=== PATIENT | male | born 1985 | race Caucasian/White ===

== ENCOUNTER 2016-12-24 15:04 | Emergency (ER) | payer SELFPAY ==
[~2016-12-24] VITALS: Ht 170.2 cm; Wt 63.5 kg
[2016-12-24 15:09] VITALS: BP 122/76
--- NOTE | 2016-12-24 15:34 | PHYS DOC ---
Past Medical History Past Medical History: Other Additional Past Medical Histor: SCOLIOSIS, dental disease Past Surgical History: No Surgical History Smoking: Less than 1pk/day Additional Information: 09/09 ppd Alcohol Use: Occasionally Drug Use: None Adult General Chief Complaint Chief Complaint: LOWER BACK PAIN OR INJURY [facility] HPI Patient is a 31 year old male who presents with low back and tailbone pain after falling down approximately 5 stairs 1 week ago. The pain does not radiate. He denies hitting his head or loss of consciousness. He does not have weakness, numbness, incontinence, or saddle anesthesia. He denies abdominal pain , nausea, vomiting, or urinary symptoms. He is ambulatory. He has been prescribed Tylenol #3 in the past for his scoliosis pain. He is out of this medication. His PCP is Dr. Viviana Elizalde. Review of Systems Review of Systems Constitutional: Denies fever or chills. [] Eyes: Denies change in visual acuity, redness, or eye pain. [] HENT: Denies ear pain, nasal congestion or sore throat. [] Respiratory: Denies cough or shortness of breath. [] Cardiovascular: Denies chest pain, palpitations or edema. [] GI: Denies abdominal pain, nausea, vomiting, bloody stools or diarrhea. [] : Denies dysuria, hematuria or urinary frequency. [] Musculoskeletal: Denies joint pain. Reports low back and tailbone pain. Integument: Denies rash or skin lesions. [] Neurologic: Denies headache, focal weakness or sensory changes. Denies incontinence or saddle anesthesia. Denies loss of consciousness. Endocrine: Denies polyuria or polydipsia. [] Psych: Denies anxiety or depression. [] All systems reviewed and negative unless otherwise stated in the HPI. Allergies Allergies Allergies Coded Allergies Type Severity Reaction Last Updated Verified Sulfa (Sulfonamide Antibiotics) Allergy Unknown 01/09/15 No Physical Exam Physical Exam Constitutional: Well developed, well nourished, no acute distress, non-toxic appearance. [] HENT: Normocephalic, atraumatic, oropharynx moist. [] Eyes: PERRLA, EOMI, conjunctiva normal, no discharge. [] Neck: Normal range of motion, no tenderness, supple, no stridor. [] Cardiovascular: Heart rate regular rhythm, no murmur. [] Lungs & Thorax: Bilateral breath sounds clear to auscultation without wheezes, rales, or rhonchi. [] Abdomen: Bowel sounds normal, soft, no tenderness, no masses, no pulsatile masses. [] Skin: Warm, dry, no erythema, no rash. [] Back: Lumbar and sacral midline tenderness, no CVA tenderness. There is bilateral paraspinal lumbar muscle tenderness. Extremities: No tenderness, ROM intact, no edema. Distal pulses equal bilaterally. Neurovascularly intact distally. Neurologic: Alert and oriented X 3, normal motor function, normal sensory function, no focal deficits noted. [] Psychologic: Affect normal, judgement normal, mood normal. [] Current Patient Data Vital Signs Vital Signs Date Time Temp Pulse Resp B/P Pulse Ox O2 Delivery O2 Flow Rate FiO2 12/24/16 15:09 97.5 90 18 98 Room Air 97.5 EKG EKG [] Radiology/Procedures Radiology/Procedures REASON: fall down 5 stairs PROCEDURE: LUMBAR SPINE 2-3V; SACRUM & COCCYX 3V Lumbar spine, 3 views, 12/24/2016: History: Fall There is a minimal lumbar scoliosis. No fracture or dislocation is identified. The disc spaces are well preserved. The paraspinous soft tissues are unremarkable. IMPRESSION: No acute bony abnormality is detected. Sacrococcygeal spine, 12/24/2016: No fracture is identified. The presacral soft tissues are unremarkable. IMPRESSION: No acute abnormality is detected. Course & Med Decision Making Course & Med Decision Making Pertinent Labs and Imaging studies reviewed. (See chart for details) [] Dragon Disclaimer Dragon Disclaimer This electronic medical record was generated, in whole or in part, using a voice recognition dictation system. Departure Departure Impression: Primary Impression: Coccygeal contusion Disposition: 01 HOME, SELF-CARE Condition: STABLE Referrals: NO PCP (PCP) Patient Instructions: Tailbone Injury, [id number] Additional Instructions: There were no broken bones or dislocation seen on your xrays today. Please take the prescribed medications as directed. Do not drive or operate heavy machinery while taking these medications. To help your back pain, you may apply heat, practice gentle stretching, and light massage. Avoid bending or heavy lifting, as these will strain your back. Please follow up with your primary care doctor if your pain continues. Return to the emergency department if you have any new or concerning symptoms. Scripts Methocarbamol (Robaxin)500 Mg [id number] Mg PO QID #20 TAB Prov:STANISLAV ARTHUR 12/24/16 Acetaminophen With Codeine (Tylenol With Codeine #3 Tablet)1 Each Tablet1 Tab PO PRN Q6HRS PRN PAIN #20 TAB Prov:STANISLAV ARTHUR 12/24/16 Problem Qualifiers Primary Impression: Coccygeal contusion Encounter type: initial encounter Qualified Code: S30.0XXA - Contusion of lower back and pelvis, initial encounter STANISLAV ARTHUR Dec 24, 2016 15:34
--- NOTE | 2016-12-24 16:19 | RAD ---
Lumbar spine, 3 views, 12/24/2016: History: Fall There is a minimal lumbar scoliosis. No fracture or dislocation is identified. The disc spaces are well preserved. The paraspinous soft tissues are unremarkable. IMPRESSION: No acute bony abnormality is detected. Sacrococcygeal spine, 12/24/2016: No fracture is identified. The presacral soft tissues are unremarkable. IMPRESSION: No acute abnormality is detected.
[2016-12-24] MEDS ORDERED: ACET-704 PO (16:33)
[2016-12-24] MEDS ORDERED: METH-37 PO (16:33)
== END 2016-12-24 16:39 | disposition home or self-care (01) ==
LOC: ER 15:04
DX: S30.0XXA Contusion of lower back and pelvis, initial encounter (principal); M41.9 Scoliosis, unspecified; F17.200 Nicotine dependence, unspecified, uncomplicated; Z88.2 Allergy status to sulfonamides; W10.8XXA Fall (on) (from) other stairs and steps, initial encounter; Y93.89 Activity, other specified; Y92.89 Other specified places as the place of occurrence of the external cause; Y99.8 Other external cause status
CPT/HCPCS: 72100; 72220; 99284

== ENCOUNTER 2018-06-17 12:08 | Emergency (ER) | payer SELFPAY ==
[~2018-06-17] VITALS: Ht 170.2 cm; Wt 63.5 kg
[~2018-06-17 12:08] MED LIST: ACET-704 PO; METH-37 PO
[2018-06-17 12:19] VITALS: BP 148/85
[2018-06-17] MEDS ORDERED: BENZ100C PO (12:36)
[2018-06-17] MEDS ORDERED: PROM118S5 PO (12:36)
[2018-06-17] MEDS ORDERED: DOXY100C2 PO (12:36)
--- NOTE | 2018-06-17 12:36 | PHYS DOC ---
Past Medical History Past Medical History: Other Additional Past Medical Histor: SCOLIOSIS, dental disease Past Surgical History: No Surgical History Alcohol Use: Occasionally Drug Use: None Adult General Chief Complaint Chief Complaint: COUGH HPI HPI Patient is a 33 year old male who presents with sinus pressure and congestion with productive cough for the last 30 days. Patient reports it is steadily worsened over the last 10 days. He reports he is a smoker, but has been unable to smoke the last few days due to shortness of breath. He denies fever or chills. Review of Systems Review of Systems Constitutional: Denies fever or chills [] HENT: Reports sinus pain and pressure, no sore throat Respiratory: Reports productive cough and shortness of breath Cardiovascular: No additional information not addressed in HPI [] Integument: Denies rash or skin lesions [] Neurologic: Denies headache, focal weakness or sensory changes [] All other systems were reviewed and found to be within normal limits, except as documented in this note. Allergies Allergies Allergies Coded Allergies Type Severity Reaction Last Updated Verified Sulfa (Sulfonamide Antibiotics) Allergy Unknown 01/09/15 No Physical Exam Physical Exam Constitutional: Well developed, well nourished, no acute distress, non-toxic appearance. [] HENT: Normocephalic, atraumatic, bilateral TMs normal, oropharynx moist, no oral exudates, a few sinus tenderness on palpation Eyes: PERRLA, EOMI, conjunctiva normal, no discharge. [] Neck: Normal range of motion, no tenderness, supple, no stridor. [] Cardiovascular:Heart rate regular rhythm, no murmur [] Lungs & Thorax: Bilateral breath sounds clear to auscultation [] Skin: Warm, dry, no erythema, no rash. [] Neurologic: Alert and oriented X 3, normal motor function, normal sensory function, no focal deficits noted. [] Psychologic: Affect normal, judgement normal, mood normal. [] Current Patient Data Vital Signs Vital Signs Date Time Temp Pulse Resp B/P (MAP) Pulse Ox O2 Delivery O2 Flow Rate FiO2 06/17/18 12:19 98.4 106 20 148/85 (106) 98 Room Air 98.4 EKG EKG [] Radiology/Procedures Radiology/Procedures [] Course & Med Decision Making Course & Med Decision Making Pertinent Labs and Imaging studies reviewed. (See chart for details) Plan: Doxycycline Rx, Tessalon Perles Rx, guaifenesin AC Rx, follow-up with PCP , return precautions reviewed Favio Disclaimer Favio Disclaimer This electronic medical record was generated, in whole or in part, using a voice recognition dictation system. Departure Departure Impression: Primary Impression: Sinusitis Additional Impression: Bronchitis Disposition: HOME, SELF-CARE Condition: GOOD Referrals: NO PCP (PCP) Patient Instructions: Acute Bronchitis, Sinusitis Scripts Promethazine Hcl/Codeine (PROMETHAZINE-CODEINE SYRUP) 118 Ml Syrup 5 ML PO Q4-6HRS, #90 ML Prov: MARIELLA LOGN [employer]URE [employer]ESS[employer]KER 06/17/18 Benzonatate (TESSALON PERLE) 100 Mg Capsule 1 CAP PO TID, #30 CAP Prov: MARIELLA LONG [employer]URE [employer]ER 06/17/18 Doxycycline Hyclate (DOXYCYCLINE HYCLATE) 100 Mg Capsule 1 CAP PO BID, #20 CAP Prov: MARIELLA LONG APRN 06/17/18 Problem Qualifiers Primary Impression: Sinusitis Sinusitis location: pansinusitis Chronicity: acute Recurrence: non- recurrent Qualified Codes: J01.40 - Acute pansinusitis, unspecified MARIELLA LONG [employer]ER Jun 17, 2018 12:36
== END 2018-06-17 12:52 | disposition home or self-care (01) ==
LOC: ER 12:08
DX: J01.40 Acute pansinusitis, unspecified (principal); J40 Bronchitis, not specified as acute or chronic; F17.200 Nicotine dependence, unspecified, uncomplicated; Z88.2 Allergy status to sulfonamides
CPT/HCPCS: 99283